=== PATIENT | male | born 1970 | race Caucasian/White ===

== ENCOUNTER → 2016-05-19 | Outpatient (CLI) | payer OTHER ==
--- NOTE | ~2016-05-19 | MR17 ---
[facility] A Service of [facility] & [facility] RADIOLOGY TEXT RESULTS PATIENT: TUCKER FALCON LOCATION: [facility] : 66 UNIT #: [id number] AGE: [address]: Tye Sterling II, MD SEX: M ORDER DR: [id number] [facility] [address] [place], [place] [address] [id number] O MR#: [id number] Acc #: [id number] NAME: TUCKER FALCON : 1970 SEX: M STUDY DATE/TIME: 05/19/2016 19:40 UNIT: [facility] ROOM: STUDY DESCRIPTION: MR Brain WWo Contrast Attending Physician: Tye Sterling II., M.D. Ordering Physician: Tye Sterling II., M.D. Primary Care Physician: Primary Care Physician No MRI CENTER REPORT This report is preliminary unless electronic signature is present. EXAM MRI of the brain with and without contrast dated 05/19/2016 COMPARISON MRI cervical spine with and without contrast dated 05/19/2016. No prior brain imaging. HISTORY Numbness in the torso, groin, right arm and hand for 3-1/2 years. FINDINGS Multisequence multiplanar imaging of the brain was obtained with and without contrast. 20 mL of MultiHance was administered intravenously. No acute stroke, enhancing intracranial mass, mass effect, midline shift or hydrocephalus. Punctate hyperintense T2 signal is noted in the left frontal centrum semiovale. There is a mid to right paramidline bony excrescence arising from the outer table of the skull, most suggestive of exostosis or other benign bony mass. The adjacent scalp is within normal limits. No pathological fracture or intraosseous associated soft tissue component. Nasal septum is deviated to the right. Minimal left maxillary peripheral mucosal thickening is seen. Imaged orbits and the ocular structures, mastoid air cells are within normal limits. Thick slices through the sella with the pituitary gland, pineal region and upper cervical spine are unremarkable. IMPRESSION 1. No significant acute intracranial abnormality. 2. Incidentally noted is a bony well-defined mass arising from the outer table of the right frontal bone in the region of mid to right paramidline aspect. It is probably a nonaggressive lesion like an exostosis. Dictated by... [facility]. [facility] A Service of [facility] RADIOLOGY TEXT RESULTS PATIENT: TUCKER FALCON [facility] [birth year] UN[facility] #: [id number] AGE: [address]: Tye Sterling II, MD SEX: M ORDER DR: Rick Cedeno M.D. THIS IS AN ELECTRONICALLY VERIFIED REPORT Rick Cedeno M.D. at 05/22/2016 2:42 PM CPR/bhavesh TD: 05/22/2016 11:56 JOB #: [id number] MRI CENTER REPORT Page 1 of 1 COPY
--- NOTE | ~2016-05-19 | MR31 ---
[facility]. [facility] A Service of [facility] RADIOLOGY TEXT RESULTS PATIENT: TUCKER FALOCN LOCATION: [facility] : 66 UNIT #: [id number] AGE: [address]: Tye Sterling II, MD SEX: M ORDER DR: [id number] [facility] [address] [place], [place] [address] [id number] O MR#: [id number] Acc #: [id number] NAME: TUCKER FALCON : 1970 SEX: M STUDY DATE/TIME: 05/19/2016 19:40 UNIT: [facility] ROOM: STUDY DESCRIPTION: MR Cervical WWo Contrast Attending Physician: Tye Sterling II., M.D. Ordering Physician: Tye Sterling II., M.D. Primary Care Physician: Primary Care Physician No MRI CENTER REPORT This report is preliminary unless electronic signature is present. EXAM MRI of the cervical spine without and with contrast dated 05/19/2016. COMPARISON MRI brain without contrast dated 05/19/2016. HISTORY Numbness in dorsal and both sides of the groin, right arm and hand for thre3 and one-half years. FINDINGS Multisequence multiplanar imaging of the cervical spine was obtained with and without contrast. 20 mL of MultiHance was administered intravenously. Vertebral body heights and alignment are preserved. Degenerative disc disease is at multiple levels. Fatty lesions are noted in C6 and C7 vertebral bodies with some edematous change. It is also noted in T1 and T3 vertebral body. Cervical cord demonstrates normal expected course, caliber and signal. Pre and paravertebral soft tissues do not demonstrate any significant abnormality. C2-3: Concentric disc bulge with superimposed central protrusion. Mild bilateral facet changes are noted without canal stenosis or neural foraminal narrowing. C3-4: Concentric disc bulge with central protrusion and mild bilateral facet changes. No canal stenosis or neural foraminal narrowing. C4-5: Concentric disc bulge with superimposed central protrusion. No canal stenosis or neural foraminal narrowing. C5-6: Concentric disc bulge with superimposed left hnlaxti-[id number] protrusion and left uncinate spur with severe left STS. [facility] A Service of [facility] & [facility] RADIOLOGY TEXT RESULTS PATIENT: TUCKER FALCON [facility] [birth year] UNIT #: [id number] AGE: [address]: Tye Sterling II, MD SEX: M ORDER DR: and [id number] right neural foraminal narrowing. The right neural foramen is relatively more patent superiorly and the narrowing is seen only inferiorly. Borderline size to mild canal stenosis. C6-7: Disc osteophyte complex with left central to subarticular protrusion with borderline size to mild canal stenosis. Mild left neural foraminal narrowing is seen with mild canal stenosis. C7-T1: Concentric disc bulge with mild bilateral facet changes. No significant canal stenosis or neural foraminal narrowing. IMPRESSION 1. Cord is unremarkable. 2. Degenerative changes are noted at multiple levels as described above with protrusions. 3. Left C5-6 neural foraminal narrowing is relatively worse. Correlate with left C6 radiculopathy. 4. Increased T2 signal lesions are noted within C6, C7 and T3 vertebral bodies with a small one in T1 also. These are most suggestive of atypical hemangiomas. . Dictated by... Rick Cedeno M.D. THIS IS AN ELECTRONICALLY VERIFIED REPORT Rick Cedeno M.D. at 05/22/2016 2:41 PM CPR/cmvadim TD: 05/22/2016 11:26 JOB #: [id number] MRI CENTER REPORT Page 1 of 1 COPY
== END | disposition home or self-care (01) ==
LOC: CMRI 19:14
DX: R20.0 Anesthesia of skin (principal); M50.21 Other cervical disc displacement, high cervical region; M50.222 Other cervical disc displacement at C5-C6 level; M50.223 Other cervical disc displacement at C6-C7 level; M50.83 Other cervical disc disorders, cervicothoracic region; R93.0 Abnormal findings on diagnostic imaging of skull and head, not elsewhere classified
CPT/HCPCS: 70553; 72156; A9577